=== PATIENT | male | born 1975 | race Caucasian/White ===

== ENCOUNTER 2016-04-08 11:58 | Emergency (ER) | payer MEDICARE, MEDICAID ==
[~2016-04-08] VITALS: Ht 182.9 cm; Wt 90.9 kg
[2016-04-08 12:07] VITALS: BP 121/90; PULSE 109; RESP 20; O2SAT 98
--- NOTE | 2016-04-08 13:43 | ED.REPORT ---
HPI-Abd Pain M Under 40 Date of Service Apr 08, 2016 ED Provider: José Miguel Connors MD This is a 40 year old male with a history of schizophrenia presenting to the emergency department complaining of lower abdominal pain that began yesterday evening. Reports exacerbation of pain by ambulation. Denies vomiting, dysuria, flank pain, hematochezia, hematemesis, or diarrhea. Last BM yesterday, pt is passing gas. Pain is improved in the ED. Nursing Notes Stated Complaint: WAIST PAIN Chief Complaint: Male Abdominal Pain Nursing Notes Reviewed: Yes Allergies: Coded Allergies: No Known Allergies (Verified , 07/05/03) Scheduled Polyethylene Glycol 3350 (Miralax) 17 Gm Powd.pack 17 GM PO DAILY Scheduled PRN Ibuprofen (Ibuprofen) 800 Mg Tablet 800 MG PO TID PRN PRN For Pain General Time Seen by MD: 13:39 Chief Complaint Abdominal pain Hx Obtained From: Patient Arrived By: Walk-in Sudden in Onset?: Yes Onset Occurred: Yesterday Symptom Duration: Since onset Location: : Abdomen lower Severity: Current: Moderate Pertinent Negative: Pt denies other symptoms Recent Healthcare: No recent doctor visit, No recent hospitalization Similar Sx Previous: No Past Medical History Past Medical History Schizophrenia w/ previous suicidal attempt Ambulatory Status Independent Review of Systems Constitutional: Denies: Chills, Fever Respiratory: Denies: Shortness of breath Cardiovascular: Denies: Chest pain GI: Reports: Abdominal pain, Denies: Constipation, Diarrhea, Nausea, Vomiting Male: Denies Dysuria, Denies Flank pain Complete sys rev & neg: except as marked. Physical Exam Initial Vital Signs Vital Signs (First) Date Time Temp Pulse Resp B/P Pulse Ox O2 Delivery O2 Flow Rate FiO2 04/08/16 12:07 36.2 109 20 121/90 98 Room Air Initial VS: Reviewed Head / Eyes: Atraumatic, Normocephalic, PERRL ENT: Mucous membranes moist, Conjunctiva normal, No scleral icterus Neck: Supple, Non-tender, Full range of motion Extremities: Vascular intact, Neuro intact, No swelling, No tenderness Skin: Warm, Dry, No cyanosis Neurologic: Alert, Oriented, Nonfocal Psychiatric: Mood/affect normal, Behavior normal, Normal thought content General/Constitutional: Awake, Alert Respiratory / Chest: Breath sounds NL, Breath sounds = bilat, No respiratory distress, No rales, No rhonchi, No wheezing, No stridor Cardiovascular: Heart rate NL, Regular rhythm, Heart sounds NL, Peripheral circulation NL Abdomen: No guarding, No rebound, BS normoactive Tenderness/Guarding/Rebound: Positive: Tender suprapubic Back: Inspection NL, Non-tender, No CVA tenderness Interpretation & Diagnostics ABD X-RAY IMPRESSION: Mild scattered stool. No obstruction. Dictated by: Phyllis Shaw M.D. on 04/08/2016 at 15:21 Approved by: Phyllis Shaw M.D. on 04/08/2016 at 15:23 Lab Results Interpretation Result Diagram: 04/08/16 1435 04/08/16 1602 Test 04/08/16 14:35 04/08/16 16:02 04/08/16 16:31 White Blood Count 8.8th/mm3 (3.8-10.1) Red Blood Count 4.66mil/mm3 (4.40-5.80) Hemoglobin 14.5g/dL (13.8-17.2) Hematocrit 43.7% (41.0-50.0) Mean Corpuscular Volume 93.8fL (81-100) Mean Corpuscular Hemoglobin 31.1pg (27.0-35.0) Mean Corpuscular Hemoglobin Concent 33.2% (32.0-37.0) Red Cell Distribution Width 12.3% (12.3-15.4) Platelet Count 330bil/L (150-400) Neutrophils (%) (Auto) 54.3% (40-74) Lymphocytes (%) (Auto) 33.3% (14-46) Monocytes (%) (Auto) 8.1% (4-12) Eosinophils (%) (Auto) 3.4% (0-5) Basophils (%) (Auto) 0.6% (0-3) Hold Page Top Tube Received (Received) Sodium Level 138mEq/L (134-144) Potassium Level 4.8mEq/L (3.5-5.2) Chloride Level 105mEq/L (97-108) Carbon Dioxide Level 21mmol/L (18-29) Blood Urea Nitrogen 6mg/dL (6-24) Creatinine 0.80mg/dL (0.76-1.27) Estimat Glomerular Filtration Rate 114mL/min (>59) Glucose Level 78mg/dL (60-99) Calcium Level 8.0mg/dL (8.5-10.1) Magnesium Level 1.9mg/dL (1.6-2.6) Total Bilirubin 0.2mg/dL (0.0-1.2) Aspartate Amino Transf (AST/SGOT) 15U/L (0-50) Alanine Aminotransferase (ALT/SGPT) 14U/L (0-44) Alkaline Phosphatase 94U/L (25-150) Total Protein 5.9g/dL (6.4-8.4) Albumin 3.6g/dL (3.4-5.0) Lipase 25U/L (13-60) Urine Color Yellow (YELLOW) Urine Appearance Clear (CLEAR,HAZY) Urine pH 6.5 (5.0-8.0) Urine Specific [place] 1.025 (1.003-1.035) Urine Protein Negativemg/dL (NEG,TRACE) Urine Glucose (UA) Negativemg/dL (NEGATIVE) Urine Ketones Negativemg/dL (NEGATIVE) Urine Occult Blood Negative (NEGATIVE) Urine Nitrite Negative (NEGATIVE) Urine Bilirubin Negative (NEGATIVE) Urine Urobilinogen Normalmg/dL (NORMAL) Urine Leukocyte Esterase Negative (NEGATIVE) Urine RBC 0-2/hpf (0-2) Urine WBC 0-5/hpf (0-5) Urine Epithelial Cells None/hpf (NONE-MOD) Urine Crystals None seen (NONE SEEN) Urine Bacteria None/hpf (NONE-FEW) Urine Hyaline Casts None/lpf (NONE) Urine Granular Casts None seen (NONE SEEN) Urine Waxy Casts None seen (NONE SEEN) Urine Red Blood Cell Casts None seen (NONE SEEN) Urine White Blood Cell Casts None seen (NONE SEEN) Urine Mucus None seen (None Seen) Urine Trichomonas None seen (NONE SEEN) Urine Yeast None (NONE SEEN) Urinalysis Comment None Urine Culture Reflexed Not indicated Re-Eval/Medical Decision Med Decision/Clinical Course 40-year-old male complaining of lower abdominal pain since last night. Reports similar symptoms in the past when constipated. Mild suprapubic tenderness. Urine negative for infection. Labs unremarkable. X-ray consistent with constipation. Patient will be treated for constipation with miralax and with return precautions. Re-Evaluation/Progress : Time of Eval: 16:36 Re-Evaluation/Progress Note: Plan for d/c, all questions addressed. Counseled Regarding: Diagnosis, Lab results, Need for follow-up, When/why to return to ED Patient Discharge & Departure Primary Impression: Generalized abdominal pain Additional Impression: Constipation Constipation type: unspecified constipation type Qualified Code: K59.00 - Constipation, unspecified Disposition: Home Discharge Condition All VS Reviewed: Yes Condition: Stable Patient Instructions: Acute Abdominal Pain (ED), Constipation (ED) Additional Instructions: Your workup was reassuring today. Take miralax as prescribed. Follow-up with your primary care provider. Return to the emergency department for any new or worsening symptoms Referrals: Toro Knutson MD (PCP) Scribe Attestation Portions of this note were transcribed by Aleida Villeda. I, Dr. Connors personally performed the history, physical exam and medical decision-making; I reviewed and confirmed the accuracy of the information in the transcribed note. Signed by: david Burger. 04/08/2016, 15:00. José Miguel Connors MD Apr 08, 2016 13:43 ALEIDA VILLEDA Apr 08, 2016 13:47
[2016-04-08] MEDS ORDERED: 0.9% Sodium Chloride 1,000 ML IV ONE (13:49)
[2016-04-08] MEDS: Ondansetron 2 mg/mL 2 mL Inj IVPUSH PRN ×2 (14:47→14:54)
[2016-04-08 15:12] LABS: BASOPHILS % (AUTO) 0.6 % (0-3); EOSINOPHILS % (AUTO) 3.4 % (0-5); MONOCYTES % (AUTO) 8.1 % (4-12); Mean Corpuscular Hemoglobin 31.1 pg (27.0-35.0); Mean Corpuscular Volume 93.8 fL (81-100); NEUTROPHILS % (AUTO) 54.3 % (40-74); Platelet Count 330 bil/L (150-400)
--- NOTE | 2016-04-08 15:25 | DRSVH ---
PROCEDURE: X-RAY ACUTE ABDOMINAL SERIES ([id number]) INDICATIONS: abdominal pain TECHNIQUE: One view chest and two views of the abdomen were acquired. COMPARISON: None. FINDINGS: Surgical changes and devices: None. Chest: Lungs are clear. Heart size is normal. No pleural effusions. No pneumoperitoneum. Abdomen: Bowel gas pattern is normal. Mild scattered stool. No suspicious calcifications. Visualiz ed solid organ contours appear normal. Bones: No suspicious bony lesions. IMPRESSION: Mild scattered stool. No obstruction. Dictated by: Phyllis Shaw M.D. on 04/08/2016 at 15:21 Approved by: Phyllis Shaw M.D. on 04/08/2016 at 15:23
[2016-04-08] MEDS ORDERED: POLY17PO6 PO (16:36)
[2016-04-08] MEDS ORDERED: IBUP800T28 PO (16:42)
[2016-04-08 16:54] LABS: Magnesium 1.9 mg/dL (1.6-2.6)
[2016-04-08 17:12] LABS: APPEARANCE,URINE CLEAR (CLEAR,HAZY); COLOR,URINE YELLOW (YELLOW); PH,URINE 6.5 (5.0-8.0)
[2016-04-08 17:13] LABS: OCCULT BLOOD,URINE NEGATIVE (NEGATIVE); UROBILINOGEN,URINE NORMAL (NORMAL)
== END 2016-04-08 16:57 | disposition home or self-care (01) ==
LOC: SED 11:58
DX: R10.84 Generalized abdominal pain (principal); K59.00 Constipation, unspecified; F20.9 Schizophrenia, unspecified
CPT/HCPCS: 36415; 74022; 80053; 81000; 83690; 83735; 85025; 96361; 96374; 96375; 96376; 99285; J2270; J2405; J7030

== ENCOUNTER 2016-10-24 17:30 | Inpatient (IN) | payer MEDICARE, MEDICAID ==
[~2016-10-24] VITALS: Ht 182.9 cm; Wt 81.9 kg
[~2016-10-24 17:30] MED LIST: IBUP800T28 PO; POLY17PO6 PO
[2016-10-24 17:35] VITALS: BP 92/65; PULSE 132; RESP 24; O2SAT 97
[2016-10-24] MEDS ORDERED: 0.9% Sodium Chloride 1,000 ML IV ONE (18:09)
[2016-10-24] MEDS ORDERED: 0.9% Sodium Chloride 1,000 ML IV SCH (18:10)
[2016-10-24] MEDS ORDERED: Ondansetron 2 mg/mL 2 mL Inj IVPUSH ONE (18:10)
--- NOTE | 2016-10-24 18:11 | ED.REPORT ---
HPI-General Illness Date of Service Oct 24, 2016 ED Provider: Kevin Cadena MD Pt is a 41 y/o male w/ a hx of schizophrenia with prior suicide attempt, cerebral palsy with severe developmental delay, presenting to the ED with his mother c/o nausea and vomiting onset 4 days ago. He c/o associated fatigue, generalized weakness, anorexia, mild abdominal cramping, increased confusion. She denies fever, recent trauma or head injury, SI. The patient takes multiple psych meds which are unknown, she thinks that he may be on Wellbutrin and Risperdal but she is not sure. He used meth 3-4 days ago and smokes marijuana regularly to calm his hallucinations. The patient lives by himself in an apartment with assistance from his mother. He has no psychiatrist and his mother is wishing for a referral or a consult specifically regarding his psychiatric medications. Nursing Notes Stated Complaint: NOT EATING, WEAK, VOMITING Chief Complaint: Male Abdominal Pain Nursing Notes Reviewed: Yes Allergies: Coded Allergies: No Known Allergies (Verified , 10/24/16) Scheduled Amantadine (Amantadine) 100 Mg Tablet 100 MG PO QAM Bupropion ER (Bupropion ER) 150 Mg Tablet.er 150 MG PO BID Haloperidol (Haloperidol) 2 Mg Tablet 2 MG PO HS Mirtazapine (Mirtazapine) 30 Mg Tablet 30 MG PO HS Risperidone (Risperidone) 2 Mg Tablet 1 MG PO QAM RISPERDAL 1 MG IN AM & 2 MG AT HS Risperidone (Risperidone) 2 Mg Tablet 2 MG PO HS RISPERDAL 1 MG IN AM & 2 MG AT HS Scheduled PRN Acetaminophen (Acetaminophen) 500 Mg Tablet 1,000 MG PO Q6H PRN PRN For Fever Meclizine (Bonine) 25 Mg Tab.chew 25 MG PO Q8H PRN PRN For Dizziness Trazodone (Trazodone) 50 Mg Tablet 100 MG PO HS PRN PRN Insomnia diphenhydrAMINE HCl (Benadryl) 25 Mg Capsule 25-75 MG PO BID PRN PRN EPS SYMPTOMS General Time Seen by MD: 18:08 Chief Complaint Multip medical complaints Hx Obtained From: Patient, Other family... (Mother) Arrived By: Walk-in Sudden in Onset?: No Onset Occurred: 4 days ago Symptom Duration: Since onset Location: : Abdomen Quality: Cramping Radiation: : Does not radiate Severity: Current: Mild Severity: Maximum: Mild Similar Sx Previous: No Past Medical History Past Medical History Schizophrenia w/ previous suicidal attempt Cerebral palsy Arthritis Anxiety Past Surgical History Legs Left arm Smoking History Smoker Current Status UNK Social History Drug Use: Meth, THC Other Social History: Lives alone Ambulatory Status Independent Review of Systems Full Review of Systems Constitutional: Reports: Fatigue, Malaise GI: Reports: Abdominal pain, Anorexia, Nausea, Vomiting Neurologic: Reports: Slurred speech (change) Psychiatric: Reports: Hallucinations, auditory, Denies: Suicidal ideation Complete sys rev & neg: except as marked. Physical Exam Vital Signs Vital Signs Date Time Temp Pulse Resp B/P Pulse Ox O2 Delivery O2 Flow Rate FiO2 10/24/16 19:07 37.1 123 18 99/73 94 Room Air 10/24/16 17:35 36.4 132 24 92/65 97 Room Air Initial VS: Reviewed, Vital signs abnormal Head / Eyes: Atraumatic, Normocephalic, PERRL (3 mm) Neck: Supple, Non-tender, Full range of motion Respiratory: Breath sounds normal, Clear to auscultation, No respiratory distress Abdomen / GI: Soft, Non-tender, No guarding, No rebound, No distention Skin: Warm, Dry, No cyanosis Neurologic: Alert, Oriented, Nonfocal Psychiatric: Mood/affect normal, Behavior normal, Normal thought content General/Constitutional: Awake, Alert, No acute distress, Cooperative, Not toxic appearing Distress / Hydration: Positive: Dehydration severe Somnolent ENT: Atraumatic, Airway patent Mouth: Positive: Mucous membranes dry (extreme) Cardiovascular: Regular rhythm, Heart sounds NL, No gallop, No murmurs, No rubs Heart Rate / Rhythm: Positive: Tachycardia Upper Extremities Upper Extremity / MS: Neurologic intact, Vascular intact Deformity of left hand due to previous ischemic injury to hand Interpretation & Diagnostics Lab Results Interpretation Result Diagram: 10/24/16191410/24/161914 Test 10/24/16 19:15 White Blood Count 23.8th/mm3 (3.8-10.1) Red Blood Count 5.50mil/mm3 (4.40-5.80) Hemoglobin 17.0g/dL (13.8-17.2) Hematocrit 48.7% (41.0-50.0) Mean Corpuscular Volume 88.5fL (81-100) Mean Corpuscular Hemoglobin 30.9pg (27.0-35.0) Mean Corpuscular Hemoglobin Concent 34.9% (32.0-37.0) Red Cell Distribution Width 12.5% (12.3-15.4) Platelet Count 415bil/L (150-400) Neutrophils (%) (Auto) 81.6% (40-74) Lymphocytes (%) (Auto) 9.2% (14-46) Monocytes (%) (Auto) 8.5% (4-12) Eosinophils (%) (Auto) 0.1% (0-5) Basophils (%) (Auto) 0.2% (0-3) Sodium Level 137mEq/L (134-144) Potassium Level 3.8mEq/L (3.5-5.2) Chloride Level 95mEq/L (97-108) Carbon Dioxide Level 17mmol/L (18-29) Blood Urea Nitrogen 41mg/dL (6-24) Creatinine 1.95mg/dL (0.76-1.27) Estimat Glomerular Filtration Rate 40mL/min (>59) Glucose Level 128mg/dL (60-99) Lactic Acid Level 1.4mmol/L (0.4-2.0) Calcium Level 10.6mg/dL (8.5-10.1) Magnesium Level 2.5mg/dL (1.6-2.6) Total Bilirubin 0.5mg/dL (0.0-1.2) Aspartate Amino Transf (AST/SGOT) 12U/L (0-50) Alanine Aminotransferase (ALT/SGPT) 13U/L (0-44) Alkaline Phosphatase 101U/L (25-150) Total Creatine Kinase 48U/L (21-232) Total Protein 8.5g/dL (6.4-8.4) Albumin 4.7g/dL (3.4-5.0) Lipase 22U/L (13-60) Salicylates Level < 3.0ug/mL (30-250) Acetaminophen Level < 15.0ug/mL Rx (10-25) Alcohols < 10mg/dL (0-10) ECG Interpretation ECG Interpretation: Sinus tachycardia rate 113 Voltage criteria for LVH No ST or T changes No prior available for comparison Time: 19:31 Interpreted by: ED physician Normal ECG Interpretation: Normal axis, Normal intervals CT Head Interpretation IMPRESSION: No CT evidence of acute intracranial pathology. Dictated by: Oliver Johnson M.D. on 10/24/2016 at 19:39 Approved by: Oliver Johnson M.D. on 10/24/2016 at 19:41 Study: Head CT no contrast Interpretation / Wet Read by: Interpret - Radiologist Re-Eval/Medical Decision Med Decision/Clinical Course Pt is a 41 y/o male w/ a hx of schizophrenia with prior suicide attempt, cerebral palsy with severe developmental delay, presenting to the ED with his mother c/o nausea and vomiting onset 4 days ago. He c/o associated fatigue, generalized weakness, anorexia, mild abdominal cramping, increased confusion. She denies fever, recent trauma or head injury, SI. The patient takes multiple psych meds which are unknown, she thinks that he may be on Wellbutrin and Risperdal but she is not sure. He used meth 3-4 days ago and smokes marijuana regularly to calm his hallucinations. The patient lives by himself in an apartment with assistance from his mother. He has no psychiatrist and his mother is wishing for a referral or a consult specifically regarding his psychiatric medications. History from the patient is extremely limited as he is severely delayed and confused. Upon arrival he is noted to be very tachycardic with a heart rate in the 130s, no acutely lateralizing neurologic findings, no signs of trauma to the head and extremely dry mucous membranes. Meds given: IVF x3 liters, Ativan, Zofran Labs notable as below: CBC: Leukocytosis of 23.8, HCT of 48.7 CMP: CO2 low at 17. BUN of 41 and creatinine of 1.95. Potassium of 3.8. Lactic acid of 1.4. LFTs WNL. Total CK of 48. Lipase WNL. Troponin: negative Acetaminophen, salicylates, alcohol: negative Urine tox screen positive for: THC, methamphetamine, amphetamine CT head: negative EKG: Sinus tachycardia rate 113 Normal axis Normal intervals Voltage criteria for LVH No ST or T changes No prior available for comparison Cause of presentation remains unclear. Patient is afebrile though is noted to have leukocytosis. He has no respiratory complaints, no urinary complaints, no signs of soft tissue infection, no meningismus and given his overall presentation my suspicion for acute infectious process is relatively low. I suspect that his leukocytosis is due to the marginal elevation from his severe dehydration and methamphetamine abuse. CK level is not significantly elevated and my suspicion for rhabdomyolysis as well. He is noted to have significant acute kidney injury and I suspect that this is also related to his profound dehydration. After aggressive treatment with IV fluids his tachycardia improved somewhat. He was noted to be borderline hypotensive though maintaining an adequate mean arterial pressure. He demonstrate downward trend in his blood pressure. At this time, I feel that the patient requires admission for ongoing fluid resuscitation, ongoing management of his acute kidney injury and observation for development of any signs of an acute infectious process. At this time I have deferred chest x-ray as his lungs are clear and he has no respiratory complaints. CT of the head demonstrated no acute intracranial process. Patient was discussed with admitting hospitalist accepted for ongoing fluid resuscitation and management. He was transferred in stable condition. Time of Eval: 19:14 Re-Evaluation/Progress Note: Pt rechecked. Informed pt of need for admission. Pt understands and agrees with plan for admission. All questions addressed. Consultation #1: Consulted With: packing floor worker Call Returned at: 19:30 Solar Fabrication Technician: Will see patient, Agrees with eval, Agrees with plan Consultation #2: Referral / Consult Name: Dorothy Garay DO Consulted With: Hospitalist Call Returned at: 21:25 Solar Fabrication Technician: Will see patient, Agrees with eval, Agrees with plan, Accepts admit Counseled Regarding: Diagnosis, Lab results, Need for admission Discharge & Departure Primary Impression: Severe dehydration Additional Impressions: Tachycardia Altered mental status Altered mental status type: unspecified Qualified Code: R41.82 - Altered mental status, unspecified Polysubstance abuse Methamphetamine abuse Schizophrenia Schizophrenia type: unspecified Qualified Code: F20.9 - Schizophrenia, unspecified Auditory hallucinations Leukocytosis Leukocytosis type: unspecified Qualified Code: D72.829 - Elevated white blood cell count, unspecified History of cerebral palsy Hypovolemic shock Disposition: ADMITTED TO HOSPITAL Discharge Condition All VS Reviewed: Yes Condition: Stable Referrals: Toro Knutson MD (PCP) Crit Care Except Billable Proc Time Spent: 105-134 minutes Services Performed: Patient management by me, Time spent at bedside, Reviewing test results, Reviewing imaging, Discussing patient care, Documentation in record, Time with fam/surrogate Critical Care Notes: Fluid resuscitation, management of hypovolemic shock, chart review Scribe Attestation Portions of this note were transcribed by Micky Humphrey. I, Dr. Cadena personally performed the history, physical exam and medical decision-making; I reviewed and confirmed the accuracy of the information in the transcribed note. copies to: Toro Knutson MD, Beck O MD Oct 24, 2016 18:11 MICKY HMUPHREY Oct 24, 2016 19:10
[2016-10-24 19:07] VITALS: BP 99/73; PULSE 123; RESP 18; O2SAT 94
[2016-10-24] MEDS ORDERED: Ondansetron 2 mg/mL 2 mL Inj IVPUSH PRN (19:15)
[2016-10-24 19:25] LABS: BASOPHILS % (AUTO) 0.2 % (0-3); EOSINOPHILS % (AUTO) 0.1 % (0-5); MONOCYTES % (AUTO) 8.5 % (4-12); Mean Corpuscular Hemoglobin 30.9 pg (27.0-35.0); Mean Corpuscular Volume 88.5 fL (81-100); NEUTROPHILS % (AUTO) 81.6 % (40-74); Platelet Count 415 bil/L (150-400)
--- NOTE | 2016-10-24 19:43 | DRSVH ---
PROCEDURE: CT BRAIN WITHOUT CONTRAST ([id number]) INDICATIONS: ams TECHNIQUE: Noncontrast 4.5 mm thick angled axial sections acquired from the foramen magnum to the vertex, with c oronal reformats. COMPARISON: [facility], CT, ABD/PELVIS W/CON (PNL), 04/04/2013, 11:19. FINDINGS: Image quality: Excellent. CSF spaces: Basal cisterns are patent. No extra-axial fluid collections. Ventricles are normal in size and shape. Brain: No midline shift. No intracranial masses or hemorrhage. [place]-white matter interface is norm al. Skull and face: Calvarium and visualized facial bones are intact, without suspicious lesions. Sinuses: Visualized sinuses and mastoids are clear. IMPRESSION: No CT evidence of acute intracranial pathology. Dictated by: Oliver Johnson M.D. on 10/24/2016 at 19:39 Approved by: Oliver Johnson M.D. on 10/24/2016 at 19:41
[2016-10-24 19:45] LABS: Magnesium 2.5 mg/dL (1.6-2.6)
--- NOTE | 2016-10-24 19:48 | ABG ---
DateTimeAnalyzed 19:42:00 -_ pH ____7.375 - 7.350 7.450 pCO2 ___37.0__ -mmHg 35.0 45.0 pO2 ___57.0__ -mmHg 69.0 116 HCO3- ___21.1__ -mmol/L 22.0 26.0 ABE ___-3.0__ -mmol/L -2.0 2.0 tHb ___16.0__ -g/dL 12.0 18.0 O2Hb ___86.4__ -% COHb ____2.4__ -% 0.0 1.5 MetHb ____0.9__ -% 0.4 1.5 sO2 ___89.4__ -% 25.0 FIO2 ___21.0__ -% Drawn By MD - Date/Time Notified____ 19:48:00 -_ Oxygen Device 1 _ROOM AIR - Notified By MD - Notified Whom DR [address] - B 754 -mmHg tO2 ___19.4__ -Vol%
[2016-10-24 19:56] LABS: Creatine Kinase 48 U/L (21-232)
[2016-10-24] MEDS ORDERED: TRAZ-115 PO (20:09)
[2016-10-24] MEDS ORDERED: RISP2TAB3 PO ×2 (20:09)
[2016-10-24] MEDS ORDERED: MIRT15TA6 PO (20:09)
[2016-10-24] MEDS ORDERED: BUPR150T12 PO (20:09)
[2016-10-24] MEDS ORDERED: MECL-114 PO (20:09)
[2016-10-24] MEDS ORDERED: AMAN100T PO (20:09)
[2016-10-24] MEDS ORDERED: ACET-171 PO (21:18)
[2016-10-24] MEDS ORDERED: HALO2TAB PO (21:18)
[2016-10-24] MEDS ORDERED: DIPH25CA6 PO (21:18)
[2016-10-24] MEDS ORDERED: MIRT30TA6 PO (21:18)
[2016-10-24 21:20] VITALS: BP 139/90; PULSE 98; RESP 18; O2SAT 100
[2016-10-24 21:32] VITALS: BP 123/85; PULSE 103; RESP 20; O2SAT 98
[2016-10-24 21:32] LABS: APPEARANCE,URINE CLEAR (CLEAR,HAZY); COLOR,URINE YELLOW (YELLOW); OCCULT BLOOD,URINE TRACE (NEGATIVE); UROBILINOGEN,URINE NORMAL (NORMAL)
[2016-10-24 21:40] VITALS: PULSE 103
--- NOTE | 2016-10-24 23:00 | NUR ---
admission patient admitted to room 3001. alert and oriented x3. able to answer admission questions appropriately. per baseline has slurred speech. able to understand. mild nausea. says "i am hungry." aware. (notified at bedside) oriented to call light and fall precautions. verbalized understanding. care ongoing.
--- NOTE | 2016-10-24 23:21 | PCM.HPMED ---
Subjective Date of Service Oct 24, 2016 Primary Provider: Admitting Physician: Dorothy Garay DO Primary Care Physician: Toro Knutson MD Attending Physician: Dorothy Garay DO Admit Status: From the Emergency Department Chief Complaint: Somnolence History of Present Illness: This 41-year-old male history of schizophrenia and a previous suicide attempt with baseline auditory hallucinations who presents to the emergency department due to increased somnolence. This afternoon the patient's sister reported to their mother that he was not making sense and was difficult to arouse. The mother mainly when checked on the patient has apartment and states that he was somewhat confused but difficult to arouse or keep awake. After some fluid in the emergency department the patient is able to give more history although remained somnolent. He states that 3-4 days ago he used methamphetamine twice in 2 consecutive days and has been awake for 4 days. He also states that during this time he has not eaten anything. He states this kind of crashes happened before in connection with his methamphetamine use. He states he is not a consistent user but only uses maybe once a month. He is a daily marijuana user which his mother states helps with his schizophrenia. He also uses alcohol this form of self-medication. It is difficult to obtain how much alcohol he is actually using. Patient denies any chest pain, shortness breath, headache, lightheadedness, dizziness, change in bowel habits, abdominal pain, or fever or chills. States is compliant with his medications "for the most part." Patient's previous suicide attempt occurred right after being diagnosed schizophrenia. At this time his girlfriend broke up with him and he purposely overdosed on all of his new antipsychotics. This caused the patient to sleep for 3 days during which time he was laying on top of his left arm causing severe necrosis. The arm was saved for surgical intervention but there is noticeable atrophy and distortion of the left forearm and hand. In the emergency department the patient had a notable anion gap and leukocytosis , as well as acute kidney injury. CT of the brain was negative. Patient was hydrated with 3 L of normal saline and admitted to the general medical floor. Review of Systems: Complete review of systems performed; pertinent positives and negatives per history of present illness, all other systems reviewed and are negative Allergies Coded Allergies: No Known Allergies (Verified , 10/24/16) Home Medications Amantadine (Amantadine) 100 Mg Tablet 100 MG PO QAM Bupropion ER (Bupropion ER) 150 Mg Tablet.er 150 MG PO BID Haloperidol (Haloperidol) 2 Mg Tablet 2 MG PO HS Mirtazapine (Mirtazapine) 30 Mg Tablet 30 MG PO HS Risperidone (Risperidone) 2 Mg Tablet 1 MG PO QAM RISPERDAL 1 MG IN AM & 2 MG AT HS Risperidone (Risperidone) 2 Mg Tablet 2 MG PO HS RISPERDAL 1 MG IN AM & 2 MG AT HS Acetaminophen (Acetaminophen) 500 Mg Tablet 1,000 MG PO Q6H PRN PRN For Fever Meclizine (Bonine) 25 Mg Tab.chew 25 MG PO Q8H PRN PRN For Dizziness Trazodone (Trazodone) 50 Mg Tablet 100 MG PO HS PRN PRN Insomnia diphenhydrAMINE HCl (Benadryl) 25 Mg Capsule 25-75 MG PO BID PRN PRN EPS SYMPTOMS PMH Schizophrenia w/ previous suicidal attempt Cerebral palsy Arthritis Anxiety Surgical History Left arm due to necrosis Family History No parental history of schizophrenia or alcohol or other substance abuse Older brother did use multiple recreational drugs and in a motorcycle accident Social History Hx Alcohol Use: Yes (drinks alcohol but not in the past few days) Hx Substance Use: Yes (marijuana and smoke meth) Hx Tobacco Use: Yes Smoking Status: Smoker Current Status UNK Exam Vital Signs Vital Sign - Last Date Time Temp Pulse Resp B/P Pulse Ox O2 Delivery O2 Flow Rate FiO2 10/24/16 21:40 103 10/24/16 21:32 37.0 20 123/85 98 Nasal Cannula 1.00 Exam General: Age-appropriate male, poor hygiene HEENT: PERRLA, EOMI, nonicteric, membranes dry Lymph: No lymphadenopathy Cardio: Regular rate and rhythm no murmurs rubs or gallops Respiratory: CTA bilaterally, no wheezes, no crackles Abdomen: Soft, positive bowel sounds, nontender, nondistended Extremities: No edema, sensation intact Psych: Somnolent reports auditory hallucinations Neuro: CN II through XII grossly intact, sensation intact throughout Skin: No rash but numerous scabs across his back; nails are unkempt Lab and Diagnostics Result Diagram: 10/24/16191410/24/161914 X-Rays, CTs and MRIs Brain CT No CT evidence of acute intracranial pathology. Dictated by: Oliver Johnson M.D. on 10/24/2016 at 19:39 12-lead ECG Sinus tachycardia at 113 with a normal QTC Assessment & Plan 41-year-old male with schizophrenia and recent methamphetamine use who presents emergency department with somnolence following four-day methamphetamine high. Somnolence likely due to recent methamphetamine use; present on admission; resolving -Patient states that he used methamphetamine twice 3 days ago and has not slept or taken anything orally since that time -He states that this feels like it usually does when he comes down off a 4 day high -CT of the head was unremarkable -Mother states he is greatly improved compared to when she first found him -Fluids as below Substance abuse/dependence;present on admission; ongoing -Chronic alcohol and marijuana user; denies consistent meth use but using enough to stay awake for 3-4 days -Recent abuse could explain patient's symptoms of anorexia and even acute kidney injury and leukocytosis due to stress reaction -Watch for withdrawal from EtOH and possibly meth -Lorazepam 1 mg every 6 hr when necessary for agitation -Consider social work referral Leukocytosis; present on admission; ongoing -Could be due to recent meth use or possibly due to underlying infection or ischemic bowel as a consequence of meth use -Blood cultures -Repeat CBC -Fluid as below -Currently the patient does not have a fever does not appear to be septic and denies any other symptoms of infection; will hold off on antibiotics at this time -Consider CT-abd if no improvement or decomp Acute kidney injury; present on admission; ongoing -Likely prerenal due to exam findings and history of anorexia and decreased fluid intake the last 3 days -Baseline 0.8; 1.98 on admit -Received 3 L normal saline in the ED -maintenance at 100 mL/HR -Recheck labs in a.m. -Patient to take oral fluid as well -CK negative Anion gap metabolic acidosis with normal lactate and hypochloremia; present on admission; ongoing -Presents with anion gap of 25 with bicarbonate of 17 and chloride of 95 and normal lactic acid 1.4 -Question if this is a mixed acidosis/alkalosis due to hypochloremia -Currently feel this is mostly due to recent meth use and anorexia -At the etiologies could include meth induced ischemic bowel although lactic acid is normal -We only test for L-lactate, and it could be conceivable that this is a D- lactate AG acidosis -CK negative -Fluids as above; repeat in AM -Consider CT abdomen if symptoms develop or change in lactic/leukocytosis Hyperglycemia; present on admission; ongoing -No history of diabetes -Likely due to stress reaction from recent methamphetamine use -A1c ordered Schizophrenia-continue Risperdal and haloperidol Insomnia-stable Anxiety-lorazepam 1 mg every 6 hours when necessary Depression-continue mirtazapine Disposition: Patient is being admitted to inpatient status with expected length of stay greater than two midnights due to to severity of presentation, duration of treatment, and risks of adverse events disposition Pain Evaluation: Adequate Pain Control VTE Prophylaxis: Sub-Q Heparin (Unfractionated) VTE Mechanical Devices: Intermittant Pneumatic CD Resuscitation Status: CPR: Attempt Resuscitation Attending Statement The patient was seen and examined together with house staff on 10/24/2016 and I agree with the history, exam and plan as outlined in the note above. Gregg Ceja DO Oct 24, 2016 23:21 Dorothy Garay DO Oct 25, 2016 03:06
[2016-10-24] MEDS ORDERED: Alum-Mag Hydrox-Simeth 30 mL Suspension PO PRN (23:25)
[2016-10-24] MEDS ORDERED: Polyethylene Glycol (PEG) 17 Gm Powder PO PRN (23:25)
[2016-10-24] MEDS ORDERED: AMANTADINE 100 MG PO SCH (23:35)
[2016-10-24] MEDS: 0.9% Sodium Chloride 1,000 ML IV SCH (23:46)
[2016-10-24] MEDS: Heparin 5,000 Unit/mL Inj SUBQ SCH (23:47)
[2016-10-24] MEDS: Ondansetron 2 mg/mL 2 mL Inj IVPUSH PRN (23:51)
[2016-10-25] VITALS (8 sets, daily range): BP systolic 106–128; BP diastolic 67–80; PULSE 77–105; RESP 16–18; O2SAT 93–96
[2016-10-25 05:12] LABS: BASOPHILS % (AUTO) 0.4 % (0-3); EOSINOPHILS % (AUTO) 0.8 % (0-5); MONOCYTES % (AUTO) 8.4 % (4-12); Mean Corpuscular Volume 89.2 fL (81-100); NEUTROPHILS % (AUTO) 65.9 % (40-74); Platelet Count 344 bil/L (150-400)
[2016-10-25 05:54] LABS: Magnesium 2.1 mg/dL (1.6-2.6); Phosphorus 2.5 mg/dL (2.5-4.9)
[2016-10-25] MEDS ORDERED: risperiDONE 2 mg Tablet PO SCH ×3 (08:30→21:00)
[2016-10-25] MEDS: buPROPion SR 150 mg ER12 Tablet PO SCH ×2 (09:52→20:16)
[2016-10-25] MEDS: risperiDONE 1 mg Tablet PO SCH (09:52)
[2016-10-25] MEDS: Heparin 5,000 Unit/mL Inj SUBQ SCH ×2 (09:55→17:41)
[2016-10-25] MEDS: 0.9% Sodium Chloride 1,000 ML IV SCH ×2 (09:56→20:16)
--- NOTE | 2016-10-25 15:02 | PCM.PNMED ---
Subjective Date of Service Oct 25, 2016 Subjective Mentation improved. Patient more alert and interactive. Acute kidney injury is improved. Exam Vital Signs Vital Sign - Last Date Time Temp Pulse Resp B/P Pulse Ox O2 Delivery O2 Flow Rate FiO2 10/25/16 12:45 36.7 93 18 117/76 94 Room Air 10/24/16 21:32 1.00 Intake and Output 10/24/16 10/24/16 10/25/16 Cumulative From/Thru 15:00 23:00 07:00 10/24/16 17:35 - 10/25/16 05:41 Intake Total 2000 ml 1113 ml 3113 ml Output Total 0 ml 0 ml Balance 2000 ml 1113 ml 3113 ml Intake Oral 613 ml 613 ml IV Total 2000 ml 500 ml 2500 ml Output Urine Total 0 ml 0 ml # Bowel Movements 0 0 Exam General: Age-appropriate male, poor hygiene HEENT: PERRLA, EOMI, nonicteric, membranes dry Lymph: No lymphadenopathy Cardio: Regular rate and rhythm no murmurs rubs or gallops Respiratory: CTA bilaterally, no wheezes, no crackles Abdomen: Soft, positive bowel sounds, nontender, nondistended Extremities: No edema, sensation intact Psych: Somnolent reports auditory hallucinations Neuro: CN II through XII grossly intact, sensation intact throughout Skin: No rash but numerous scabs across his back; nails are unkempt IVs and Medications Medications Reviewed: Medications were reviewed in detail Lab and Diagnostics Result Diagram: 10/25/16 0500 10/25/16 0500 X-Rays, CTs and MRIs Brain CT No CT evidence of acute intracranial pathology. Dictated by: Oliver Johnson M.D. on 10/24/2016 at 19:39 12-lead ECG Sinus tachycardia at 113 with a normal QTC Assessment & Plan 41-year-old male with schizophrenia and recent methamphetamine use who presents emergency department with somnolence following four-day methamphetamine high. #Altered mental status/Somnolence due to recent methamphetamine use; present on admission; resolving -Patient states that he used methamphetamine twice 3 days ago and has not slept or taken anything orally since that time -He states that this feels like it usually does when he comes down off a 4 day high -CT of the head was unremarkable #Substance abuse/dependence;present on admission; ongoing -Chronic alcohol and marijuana user; denies consistent meth use but using enough to stay awake for 3-4 days -Recent abuse could explain patient's symptoms of anorexia and even acute kidney injury and leukocytosis due to stress reaction -Watch for withdrawal from EtOH and possibly meth -Lorazepam 1 mg every 6 hr when necessary for agitation -social work referral for CD assessment # Leukocytosis; present on admission; ongoing -Could be due to recent meth use or possibly due to underlying infection or ischemic bowel as a consequence of meth use -Blood cultures pending -Currently the patient does not have a fever does not appear to be septic and denies any other symptoms of infection; will hold off on antibiotics at this time # Acute kidney injury; present on admission; ongoing -Likely prerenal due to exam findings and history of anorexia and decreased fluid intake the last 3 days -Baseline 0.8; 1.98 on admit. Improved to 1.17 -Received 3 L normal saline in the ED -maintenance at 100 mL/HR -CK negative # Anion gap metabolic acidosis with normal lactate and hypochloremia; present on admission; ongoing -Presents with anion gap of 25 with bicarbonate of 17 and chloride of 95 and normal lactic acid 1.4 -Question if this is a mixed acidosis/alkalosis due to hypochloremia -Currently feel this is mostly due to recent meth use and anorexia -At the etiologies could include meth induced ischemic bowel although lactic acid is normal # Hyperglycemia; present on admission; ongoing -No history of diabetes -Likely due to stress reaction from recent methamphetamine use -A1c ordered # Schizophrenia-continue Risperdal and haloperidol # Insomnia-stable # Anxiety-lorazepam 1 mg every 6 hours when necessary # Depression-continue mirtazapine Disposition: Patient is being admitted to inpatient status with expected length of stay greater than two midnights due to to severity of presentation, duration of treatment, and risks of adverse events disposition Disposition: Possible discharge tomorrow VTE Prophylaxis: Sub-Q Heparin (Unfractionated) VTE Mechanical Devices: Intermittant Pneumatic CD Resuscitation Status: CPR: Attempt Resuscitation Quirino Starkey MD Oct 25, 2016 15:02 VTE Prophylaxis: Sub-Q Heparin (Unfractionated) VTE Mechanical Devices: Intermittant Pneumatic CD Resuscitation Status: CPR: Attempt Resuscitation Quirino Starkey MD Oct 25, 2016 15:02
--- NOTE | 2016-10-25 17:41 | NUR ---
Social Work: Initial Assessment Data & Assessment: See initial assessment. Patient is a 41 year old male who was admitted on 10/24/16 for dehydration and tachycardia per H&P. Patient's insurance is Medicare and [facility]. Patient's PCP is Dr. Toro Knutson. EMR reviewed. SW met with patient to discuss discharge planning. SW role explained. Patient informed SW that he lives alone in an apartment that is located on the 2nd floor and has fifteen steps at the entrance. Patient states that he considers his mother and sister to be sources of support. Patient denies having a DPOA or AD in place. Patient states that he is I at baseline for all ADLs and care needs. Patient confirms that he doesn't drive and relies on his mother and sister for transportation assistance. Patient denies having a hx of home health services or SNF. Patient denies having long-term care insurance or [facility] benefits. Upon discharge, patient states that transportation will be provided by his mother or sister. SW provided patient with a discharge planning checklist booklet and encouraged to call with any questions or concerns. Phone number provided. SW will continue to follow. Plan: Patient will likely discharge home when medically stable. Transportation will be provided by family member (mother or sister). SW will continue to follow for any needs. EITAN Martin Addendum: 10/25/16 at 1749 by HERIBERTO PATTERSON SS Amended: Links added.
[2016-10-25] MEDS: Ondansetron 2 mg/mL 2 mL Inj IVPUSH PRN (17:46)
--- NOTE | 2016-10-25 17:56 | NUR ---
diet and sleep pt eating some food this shift, wasn't until dinner that he states he doesn't have his dentures, notified kitchen and will send soft foods. Pt very sleepy earlier in shift, at dinner he states he has pain in abd, when questioned pt he states it is more nausea, medicated with zofran, awaiting results.
[2016-10-26] MEDS: Heparin 5,000 Unit/mL Inj SUBQ SCH ×2 (00:16→08:07)
[2016-10-26 00:19] VITALS: BP 98/59; PULSE 60; RESP 18; O2SAT 95
--- NOTE | 2016-10-26 04:28 | NUR ---
NOC/Activity Pt has been sleeping most of the shift. Alert and oriented x 3. Denies n/v or abd discomfort. No complains of pain throughout the body. VSS and has been afebrile overnight .Telemetry noted no abnormal rhythm. Continuing care. Intentional hourly rounding.
[2016-10-26 04:41] VITALS: BP 105/65; PULSE 68; RESP 16; O2SAT 95
[2016-10-26] MEDS: 0.9% Sodium Chloride 1,000 ML IV SCH (05:20)
[2016-10-26 08:00] VITALS: PULSE 89
[2016-10-26] MEDS: risperiDONE 1 mg Tablet PO SCH (08:06)
[2016-10-26] MEDS: buPROPion SR 150 mg ER12 Tablet PO SCH (08:06)
[2016-10-26 09:18] VITALS: BP 105/70; PULSE 76; RESP 18; O2SAT 97
--- NOTE | 2016-10-26 09:18 | PCM.DIMED ---
Discharge Instructions Date of Service Oct 26, 2016 Dates of Hospitalization Oct 24, 2016 at 20:17 Discharge Diagnosis Discharge Diagnosis #Altered mental status/Somnolence due to recent methamphetamine use; present on admission; resolving #Substance abuse/dependence;present on admission; ongoing # Leukocytosis,reactive; present on admission; improved # Acute kidney injury due to poor oral intake; present on admission; ongoing # Schizophrenia- # Insomnia-stable # Anxiety- # Depression- Diet Discharge Diet: No restrictions Activity Discharge Activity: Limited until seen by PCP Call your provider Call your provider for: Fever or Chills, Shortness of breath, Bleeding, Chest pain, Vomitting, Excessive diarrhea, Weakness (unilateral) Patient Instructions Patient Instructions You were hospitalized due to altered mental status/somnolence due to recent methamphetamine use.You also had acute kidney injury/dehydration. You have been treated with IV fluids. Symptoms resolved. Acute kidney injury improved. Please follow-up with outpatient counselors for substance abuse. Please follow-up with PCP in 2-3 weeks and discuss your hospitalization.. Follow-up Provider: Toro Knutson MD Follow-up with PCP in: 3 weeks Quirino Starkey MD Oct 26, 2016 09:17
--- NOTE | 2016-10-26 10:52 | NUR ---
Discharge Patient given discharge orders. Patient family in room at time of discharge. Patient given medication list. Patient given written and verbal instructions when next dose due. Patient IV removed fully intact and asymptomatic. Nurse offered patient to be wheeled in wheelchair to main entrance and refused. Patient walked to main entrance with family.
--- NOTE | 2016-10-26 11:14 | NUR ---
Social Work: Discharge Data & Assessment: EMR reviewed. Patient is on day 2 of hospitalization for dehydration and tachycardia per H&P. Patient was discussed in morning rounds. Patient has been deemed medically stable for discharge per MD. Patient will discharge home. Transportation will be provided by family member. No concerns were noted in morning rounds. Patient has no additional needs at this time. Plan: Patient will discharge home today. Family member will provide transportation. EITAN Martin
--- NOTE | 2016-10-26 15:24 | PCM.DC.MED ---
Discharge Summary Date of Service Oct 26, 2016 Dates of Hospitalization Date of Hospital Admission Oct 24, 2016 at 20:17 Date of Discharge: Oct 26, 2016 Providers: Admitting Physician: Dorothy Garay DO Primary Care Physician: Toro Knutson MD Attending Physician: Quirino Starkey MD Diagnosis at Time of Discharge Diagnosis at Time of Discharge #Altered mental status/Somnolence due to recent methamphetamine use; present on admission; resolving #Substance abuse/dependence;present on admission; ongoing # Leukocytosis,reactive; present on admission; improved # Acute kidney injury due to poor oral intake; present on admission; ongoing # Schizophrenia- # Insomnia-stable # Anxiety- # Depression- Procedures XRay, CTs & MRIs Brain CT No CT evidence of acute intracranial pathology. Dictated by: Oliver Johnson M.D. on 10/24/2016 at 19:39 ECG 12 Lead Sinus tachycardia at 113 with a normal QTC Brief History per HPI This 41-year-old male history of schizophrenia and a previous suicide attempt with baseline auditory hallucinations who presents to the emergency department due to increased somnolence. This afternoon the patient's sister reported to their mother that he was not making sense and was difficult to arouse. The mother mainly when checked on the patient has apartment and states that he was somewhat confused but difficult to arouse or keep awake. After some fluid in the emergency department the patient is able to give more history although remained somnolent. He states that 3-4 days ago he used methamphetamine twice in 2 consecutive days and has been awake for 4 days. He also states that during this time he has not eaten anything. He states this kind of crashes happened before in connection with his methamphetamine use. He states he is not a consistent user but only uses maybe once a month. He is a daily marijuana user which his mother states helps with his schizophrenia. He also uses alcohol this form of self-medication. It is difficult to obtain how much alcohol he is actually using. Patient denies any chest pain, shortness breath, headache, lightheadedness, dizziness, change in bowel habits, abdominal pain, or fever or chills. States is compliant with his medications "for the most part." Patient's previous suicide attempt occurred right after being diagnosed schizophrenia. At this time his girlfriend broke up with him and he purposely overdosed on all of his new antipsychotics. This caused the patient to sleep for 3 days during which time he was laying on top of his left arm causing severe necrosis. The arm was saved for surgical intervention but there is noticeable atrophy and distortion of the left forearm and hand. In the emergency department the patient had a notable anion gap and leukocytosis , as well as acute kidney injury. CT of the brain was negative. Patient was hydrated with 3 L of normal saline and admitted to the general medical floor. Hospital Course 41-year-old male with schizophrenia and recent methamphetamine use who presents emergency department with somnolence following four-day methamphetamine high. #Altered mental status/Somnolence due to recent methamphetamine use; present on admission; resolved -Patient states that he used methamphetamine twice 3 days ago and has not slept or taken anything orally since that time -He states that this feels like it usually does when he comes down off a 4 day high -CT of the head was unremarkable #Substance abuse/dependence;present on admission; ongoing -Chronic alcohol and marijuana user; denies consistent meth use but using enough to stay awake for 3-4 days -Recent abuse could explain patient's symptoms of anorexia and even acute kidney injury and leukocytosis due to stress reaction -Watch for withdrawal from EtOH and possibly meth -social work referral for CD assessment # Leukocytosis; present on admission; ongoing -Could be due to recent meth use or possibly due to underlying infection or ischemic bowel as a consequence of meth use -Blood cultures negative -Currently the patient does not have a fever does not appear to be septic and denies any other symptoms of infection; will hold off on antibiotics at this time # Acute kidney injury; present on admission; ongoing -Likely prerenal due to exam findings and history of anorexia and decreased fluid intake the last 3 days -Baseline 0.8; 1.98 on admit. Improved to 1.17 -Received 3 L normal saline in the ED -treated with 100 mL/HR -CK negative # Anion gap metabolic acidosis with normal lactate and hypochloremia; present on admission; resolved -Presents with anion gap of 25 with bicarbonate of 17 and chloride of 95 and normal lactic acid 1.4 -Question if this is a mixed acidosis/alkalosis due to hypochloremia -Currently feel this is mostly due to recent meth use and anorexia -At the etiologies could include meth induced ischemic bowel although lactic acid is normal # Hyperglycemia; present on admission; ongoing -No history of diabetes -Likely due to stress reaction from recent methamphetamine use -A1c 5.4 # Schizophrenia-continue Risperdal and haloperidol # Insomnia-stable # Anxiety-lorazepam 1 mg every 6 hours when necessary # Depression-continue mirtazapine Disposition: discharge home Exam Vital Signs (Last) Date Time Temp Pulse Resp B/P Pulse Ox O2 Delivery O2 Flow Rate FiO2 10/26/16 09:18 36.6 76 18 105/70 97 Room Air 10/24/16 21:32 1.00 Exam General: Age-appropriate male, poor hygiene HEENT: PERRLA, EOMI, nonicteric, membranes dry Lymph: No lymphadenopathy Cardio: Regular rate and rhythm no murmurs rubs or gallops Respiratory: CTA bilaterally, no wheezes, no crackles Abdomen: Soft, positive bowel sounds, nontender, nondistended Extremities: No edema, sensation intact Psych: Somnolent reports auditory hallucinations Neuro: CN II through XII grossly intact, sensation intact throughout Skin: No rash but numerous scabs across his back; nails are unkempt Test 10/24/16 19:15 10/24/16 20:44 10/25/16 05:00 10/25/16 15:27 Total Creatine Kinase 48U/L (21-232) Lipase 22U/L (13-60) Procalcitonin 0.10ng/mL (0.00-0.08) Salicylates Level < 3.0ug/mL (30-250) Acetaminophen Level < 15.0ug/mL Rx (10-25) Alcohols < 10mg/dL (0-10) Urine Color Yellow (YELLOW) Urine Appearance Clear (CLEAR,HAZY) Urine pH 6.0 (5.0-8.0) Urine Specific [place] 1.025 (1.003-1.035) Urine Protein 100mg/dL (NEG,TRACE) Urine Glucose (UA) Negativemg/dL (NEGATIVE) Urine Ketones 40mg/dL (NEGATIVE) Urine Occult Blood Trace (NEGATIVE) Urine Nitrite Negative (NEGATIVE) Urine Bilirubin Negative (NEGATIVE) Urine Urobilinogen Normalmg/dL (NORMAL) Urine Leukocyte Esterase Negative (NEGATIVE) Urine RBC 0-2/hpf (0-2) Urine WBC 0-5/hpf (0-5) Urine Epithelial Cells Moderate/hpf (NONE-MOD) Urine Crystals None seen (NONE SEEN) Urine Bacteria None/hpf (NONE-FEW) Urine Hyaline Casts None/lpf (NONE) Urine Granular Casts None seen (NONE SEEN) Urine Waxy Casts None seen (NONE SEEN) Urine Red Blood Cell Casts None seen (NONE SEEN) Urine White Blood Cell Casts None seen (NONE SEEN) Urine Mucus Present (None Seen) Urine Trichomonas None seen (NONE SEEN) Urine Yeast None (NONE SEEN) Urinalysis Comment None Urine Culture Reflexed Not indicated Urine Opiates Screen Negative Urine Methadone Screen Negative Urine Barbiturates Screen Negative Urine Amphetamines Screen Positive Urine Benzodiazepines Screen Negative Urine Cocaine Metabolite Screen Negative Urine Cannabinoids Screen Positive White Blood Count 16.9th/mm3 (3.8-10.1) Red Blood Count 4.52mil/mm3 (4.40-5.80) Hemoglobin 14.0g/dL (13.8-17.2) Hematocrit 40.3% (41.0-50.0) Mean Corpuscular Volume 89.2fL (81-100) Mean Corpuscular Hemoglobin 31.0pg (27.0-35.0) Mean Corpuscular Hemoglobin Concent 34.7% (32.0-37.0) Red Cell Distribution Width 12.4% (12.3-15.4) Platelet Count 344bil/L (150-400) Neutrophils (%) (Auto) 65.9% (40-74) Lymphocytes (%) (Auto) 24.2% (14-46) Monocytes (%) (Auto) 8.4% (4-12) Eosinophils (%) (Auto) 0.8% (0-5) Basophils (%) (Auto) 0.4% (0-3) Sodium Level 142mEq/L (134-144) Potassium Level 3.7mEq/L (3.5-5.2) Chloride Level 105mEq/L (97-108) Carbon Dioxide Level 20mmol/L (18-29) Blood Urea Nitrogen 27mg/dL (6-24) Creatinine 1.17mg/dL (0.76-1.27) Estimat Glomerular Filtration Rate 73mL/min (>59) Glucose Level 100mg/dL (60-99) Hemoglobin A1c 5.4% (4.8-5.6) Lactic Acid Level 0.7mmol/L (0.4-2.0) Calcium Level 9.1mg/dL (8.5-10.1) Phosphorus Level 2.5mg/dL (2.5-4.9) Magnesium Level 2.1mg/dL (1.6-2.6) Total Bilirubin 0.5mg/dL (0.0-1.2) Aspartate Amino Transf (AST/SGOT) 10U/L (0-50) Alanine Aminotransferase (ALT/SGPT) 9U/L (0-44) Alkaline Phosphatase 76U/L (25-150) Total Protein 6.1g/dL (6.4-8.4) Albumin 3.8g/dL (3.4-5.0) Thyroid Stimulating Hormone (TSH) 0.461uIU/mL (0.450-4.500) Hold Urine Received (Received) Discharge Medications Discharge Medications Amantadine (Amantadine) 100 Mg Tablet 100 MG PO QAM (Reported) Bupropion ER (Bupropion ER) 150 Mg Tablet.er 150 MG PO BID (Reported) Haloperidol (Haloperidol) 2 Mg Tablet 2 MG PO HS (Reported) Mirtazapine (Mirtazapine) 30 Mg Tablet 30 MG PO HS (Reported) Risperidone (Risperidone) 2 Mg Tablet 1 MG PO QAM (Reported) RISPERDAL 1 MG IN AM & 2 MG AT HS Risperidone (Risperidone) 2 Mg Tablet 2 MG PO HS (Reported) RISPERDAL 1 MG IN AM & 2 MG AT HS As needed Acetaminophen (Acetaminophen) 500 Mg Tablet 1,000 MG PO Q6H PRN PRN For Fever ( Reported) Meclizine (Bonine) 25 Mg Tab.chew 25 MG PO Q8H PRN PRN For Dizziness (Reported) Trazodone (Trazodone) 50 Mg Tablet 100 MG PO HS PRN PRN Insomnia (Reported) diphenhydrAMINE HCl (Benadryl) 25 Mg Capsule 25-75 MG PO BID PRN PRN EPS SYMPTOMS (Reported) Followup Plan Disposition: home Discharge Diet: No restrictions Discharge Activity: Limited until seen by PCP Patient Instructions You were hospitalized due to altered mental status/somnolence due to recent methamphetamine use.You also had acute kidney injury/dehydration. You have been treated with IV fluids. Symptoms resolved. Acute kidney injury improved. Please follow-up with outpatient counselors for substance abuse. Please follow-up with PCP in 2-3 weeks and discuss your hospitalization.. Follow-up Provider: Toro Knutson MD Follow-up with PCP in: 3 weeks Time spent 35 minutes coordinating discharge and counselling copies to: Toro Knutson MD, Melaku MD Oct 26, 2016 15:24
== END 2016-10-26 10:56 | disposition home or self-care (01) | DRG 918 ==
LOC: SED 17:30 → MPC 20:17
PROVIDERS: ADMIT Internal Medicine; ATTEND Internal Medicine
PROC: 4A033R1 Measurement of Arterial Saturation, Peripheral, Percutaneous Approach (ICD-10-PCS; principal; 2016-10-24)
DX: T43.622A Poisoning by amphetamines, intentional self-harm, initial encounter (principal); N17.9 Acute kidney failure, unspecified; F15.20 Other stimulant dependence, uncomplicated; E87.2 Acidosis; E86.0 Dehydration; G80.9 Cerebral palsy, unspecified; F10.20 Alcohol dependence, uncomplicated; F12.20 Cannabis dependence, uncomplicated; R73.9 Hyperglycemia, unspecified; F20.9 Schizophrenia, unspecified; F41.9 Anxiety disorder, unspecified; F32.9 Major depressive disorder, single episode, unspecified; Y92.009 Unspecified place in unspecified non-institutional (private) residence as the place of occurrence of the external cause; Z91.5 Personal history of self-harm